=== PATIENT | male | born 1990 | race Caucasian/White ===

== ENCOUNTER 2016-08-21 21:48 | Observation (INO) | payer OTHER ==
--- NOTE | ~2016-08-21 | HP ---
History And Physical [address] [place]. [address] NAME: NAYELI PEÑA JR : 89 STATUS : ADM IN [facility]#: [id number] AGE: 26 ADM/REG DATE : 08/21/16 MR#: [id number] REPORT SERV DATE: 08/22/16 DICTATED BY: ARIEL MAYO DATE: 08/22/16 REPORT STATUS : Draft TRANSCRIBED BY: MODKaylah DATE: 08/22/16 DATE OF ADMISSION: 08/21/2016 CHIEF COMPLAINT: Abdominal pain. HISTORY OF PRESENT ILLNESS: This is a 26-year-old male with a two-day history of abdominal pain that started approximately two nights ago, woke the patient up from sleep with central abdominal pain. Last night it began hurting in the right lower quadrant again waking up the patient from sleep. The patient with continued right lower quadrant pain throughout the day, was seen by his PCP, who recommended visit to ED. The patient denies nausea, vomiting, fever, or chills. CT scan was done in the emergency department with findings consistent with acute appendicitis. REVIEW OF SYSTEMS: Ten-point review of systems completed and otherwise negative unless stated in the HPI. PAST MEDICAL HISTORY: None. PAST SURGICAL HISTORY: None. SOCIAL HISTORY: No tobacco, alcohol, or illicit drug use. MEDICATIONS: None. ALLERGIES: NONE. LABORATORY DATA: White blood count 11.4, hemoglobin 14, hematocrit 40.6, and platelets 205. Sodium 141, potassium 3.9, chloride 104, bicarb 28, BUN 7, creatinine 0.87, and glucose 110. PHYSICAL EXAMINATION: VITAL SIGNS: Temperature 98.5, blood pressure 136/77, pulse 62, respirations 17, and O2 saturation 99% on room air. GENERAL: No acute distress. Alert and oriented x3. HEENT: Normocephalic and atraumatic. Extraocular muscles intact. NECK: Supple. Trachea midline. CARDIOVASCULAR: Regular rate and rhythm. LUNGS: Clear to auscultation bilaterally. EXTREMITIES: No cyanosis, clubbing, or edema. NEURO: No deficits. ABDOMEN: Soft and nondistended. Tender to palpation in the right lower quadrant with a focal rebound. No guarding. ASSESSMENT AND PLAN: This is a 26-year-old male with acute appendicitis. Plan for OR for appendectomy. History And Physical [address] [place]. [address] NAME: NAYELI PEÑA JR : 89 STATUS : ADM IN PAT#: [id number] AGE: 26 ADM/REG DATE : 08/21/16 MR#: [id number] REPORT SERV DATE: 08/22/16 DICTATED BY: ARIEL MAYO DATE: 08/22/16 REPORT STATUS : Draft TRANSCRIBED BY: MODL DATE: 08/22/16 DICTATED BY: Terry Haney MD FD/MODL Ariel Mayo M.D. / [id number] CC: Shakeel Weinstein PA-C
--- NOTE | ~2016-08-21 | OP ---
Record Of Operation [facility] [address] [place]. [address] NAME: NAYELI PEÑA JR : 89 STATUS : ADM IN PAT#: [id number] AGE: 26 ADM/REG DATE : 08/21/16 MR#: [id number] REPORT SERV DATE: 08/22/16 DICTATED BY: ARIEL HOGAN DATE: 08/22/16 REPORT STATUS : Draft TRANSCRIBED BY: MODL DATE: 08/22/16 DATE OF PROCEDURE: 08/22/2016 PREOPERATIVE DIAGNOSIS: Acute appendicitis. POSTOPERATIVE DIAGNOSIS: Acute appendicitis. PROCEDURE: Laparoscopic appendectomy. ANESTHESIA: General. SPECIMENS: Appendix. ESTIMATED BLOOD LOSS: 5 mL. COMPLICATIONS: None. DESCRIPTION OF PROCEDURE: This is a 26-year-old male, who presented with findings consistent with acute appendicitis. After risks and benefits of surgery were explained to the patient and informed consent was obtained. The patient was taken to the operating room, placed supine on the table. After adequate general endotracheal anesthesia had been induced, the patient was prepped and draped in a standard sterile fashion. A transverse curvilinear infraumbilical incision was made with a 15 blade scalpel. The Optiview technique was then used to enter the peritoneal cavity under direct visualization, after which pneumoperitoneum was established. The camera was inserted and no gross abnormalities were noted within the abdominal cavity. Two additional 5 mm trocars were then placed. The 1st one midway between the patient's umbilicus and his epigastrium slightly to the right of midline and then a 2nd 5 mm trocar in the left suprapubic area. These were both placed under direct visualization. Our instruments were inserted. The appendix was identified in the right lower quadrant and appeared distended and inflamed. Blunt dissection was then used to elevate the appendix within the field. A small window was made at the base of the appendix to the appendiceal mesentery using blunt dissection. A EndoGIA stapler with a white vascular load was then used to divide the mesoappendix. Similarly, the appendix was divided at its base using the EndoGIA stapler with a blue tissue load. There appeared to be a small amount of bleeding at the medial aspect of the staple line at the appendiceal base, which was allowed to clot. The appendix was placed within the endobag and retrieved through the umbilical trocar incision. Examination of the right lower quadrant was then performed. Normal saline irrigation with clear return of fluid, and there was no evidence of further bleeding and hemostasis was adequate. The trocars were then removed. The pneumoperitoneum was released from the abdomen. The umbilical trocar site fascia was then closed with interrupted figure- of-eight suture of 0 Vicryl. The skin incisions were then closed in a subcuticular interrupted 4-0 Monocryl. The wound areas were cleaned and sterile dressing of Dermabond was placed. The patient was then woken up from anesthesia and sent to recovery room in stable condition. No complications noted during or following the procedure, and the patient tolerated the procedure well. Record Of Operation [facility] [address] [facility] [place]. [address] NAME: NAYELI PEÑA JR : 89 STATUS : ADM IN [facility]#: [id number] AGE: 26 ADM/REG DATE : 08/21/16 MR#: [id number] REPORT SERV DATE: 08/22/16 DICTATED BY: ARIEL HOGAN DATE: 08/22/16 REPORT STATUS : Draft TRANSCRIBED BY: TETO DATE: 08/22/16 DICTATED BY: Terry Haney MD FD/TETO Ariel Hogan M.D. / [id number] CC: Shakeel Weinstein MARLAINE
[2016-08-21 19:06] LABS: BASOPHILS 0.4 %; BASOPHILS ABSOLUTE 0.04 10/3/uL (0.0-0.16); EOSINOPHILS 2.3 %; EOSINOPHILS ABSOLUTE 0.26 10/3/uL (0.0-0.53); ER CBC TAT 0 Hrs 11 Mins; HEMATOCRIT 40.6 % (40.0-51.0); IMMATURE GRANULOCYTES 0.3 %; IMMATURE GRANULOCYTES ABSOLUTE 0.03 10/3/uL (0.0-0.11); LYMPHOCYTES ABSOLUTE 2.51 10/3/uL (0.67-4.30); MEAN CORPUS HGB CONC 34.5 g/dL (32.0-36.0); MEAN CORPUSCULAR HEMOGLOB 29.9 pg (26.0-34.0); MEAN CORPUSCULAR VOLUME 86.8 fL (80-100); MEAN PLATELET VOLUME 10.3 fL (9.2-13.0); MONOCYTES ABSOLUTE 1.03 10/3/uL (0.21-1.20); NEUTROPHILS ABSOLUTE 7.55 10/3/uL (2.02-8.40); PLATELET COUNT 205 10/3/uL (150-400); RBC DISTRIBUTION WIDTH 13.9 % (12.0-16.0); RED CELL COUNT 4.68 10/6/uL (4.7-6.1); WHITE BLOOD CELLS 11.4 10/3/uL (4.5-10.5)
[2016-08-21 19:07] LABS: MANUAL DIFF NO %
[2016-08-21 19:24] LABS: ASCORBIC ACID (UR NOT ORDER) NEG (NEG); BILIRUBIN, URINE NEGATIVE (NEG); ER URINALYSIS TAT 0 Hrs 29 Mins; KETONE, URINE TRACE MG/DL (NEG); LEUKOCYTE ESTERASE(NOT OR NEG (NEG); NITRITE (URINE) NEG (NEG); WBC (NOT ORDERED) (RFLEX) < 1 (0-5)
[2016-08-21 19:28] LABS: ALBUMIN 3.9 G/DL (3.5-5.0); ALKALINE PHOSPHATASE 87 U/L (45-117); BUN (BLOOD UREA NITROGEN) 7 MG/DL (6-23); CALCIUM, SERUM 9.2 MG/DL (8.5-10.4); CHLORIDE, SERUM 104 MMOL/L (96-112); CO2 (CARBON DIOXIDE) 28 MMOL/L (24-34); CREATININE 0.87 MG/DL (0.70-1.30); GFR AFRICAN AMERICAN 140 ML/MIN (>=60); GFR NON AFRICAN AMERICAN 121 ML/MIN (>=60); GLOBULIN 3.8 G/DL (2.5-4.1); GLUCOSE, SERUM 110 MG/DL (60-99); POTASSIUM, SERUM 3.9 MMOL/L (3.5-5.3); SGOT(AST) 10 U/L (5-40); SGPT(ALT) 26 U/L (5-65); SODIUM, SERUM 141 MMOL/L (135-148); TOTAL BILIRUBIN 0.8 MG/DL (0-1.2); TOTAL PROTEIN 7.7 G/DL (6.0-8.5)
== END 2016-08-22 15:51 | disposition home or self-care (01) ==
LOC: ER 21:48 → 4SO 22:11
PROVIDERS: Emergency Medicine; Specialist
PROC: 0DTJ4ZZ Resection of Appendix, Percutaneous Endoscopic Approach (ICD-10-PCS; principal; 2016-08-22 10:45)
DX: K35.3 Acute appendicitis with localized peritonitis (principal)
CPT/HCPCS: 71010; 74177; 80053; 81001; 83690; 85025; 88304; 93005; 96374; 96376; 99285; A9270-GY; G0378; J2250; J2405; J2543; J2710; J3010; Q9967